=== PATIENT | female | born 1970 | race Asian ===

== ENCOUNTER → 2017-07-09 | Outpatient (CLI) | payer BC ==
--- NOTE | 2017-07-09 17:10 | RADRPT ---
PROCEDURE: XR Cervical Spine. CLINICAL INDICATION: Neck pain. TECHNIQUE: Three views of the cervical spine were performed. Frontal, lateral, and AP open-mouth o dontoid. The images were reviewed on a PACS workstation. COMPARISON: None. FINDINGS: There is normal stature and alignment of the vertebrae. There is no fracture. There is no lytic or blastic lesion. The disk height is normal. Surgical clips are present in the left side of the neck. IMPRESSION: 1. Prior left neck surgery. 2. Otherwise unremarkable images of the cervical spine. RPTAT: QQ .Robb Oliva MD, MD Date Time Electronically viewed and signed by .Robb Oliva MD, MD on 07/09/2017 17:10 .R/
--- NOTE | 2017-07-09 17:11 | RADRPT ---
PROCEDURE: XR Thoracic Spine. CLINICAL INDICATION: Back pain. TECHNIQUE: Two views. Frontal and lateral. COMPARISON: None available FINDINGS: There is normal stature and alignment of the vertebrae. There is no fracture. There is no lytic or blastic lesion. There are small osteophytes in the mid thoracic spine. The paravertebral soft tissues are unremarkable. IMPRESSION: 1. Small osteophytes in the mid thoracic spine. 2. Otherwise unremarkable images of the thoracic spine. RPTAT: QQ .Robb Oliva MD, Date Time Electronically viewed and signed by .Robb Oliva MD, on 07/09/2017 17:10 .R/
== END | disposition home or self-care (01) ==
LOC: RAD 12:47
PROVIDERS: ATTEND Family Medicine
DX: M54.6 Pain in thoracic spine (principal)
CPT/HCPCS: 72040; 72072